=== PATIENT | female | born 1940 | race Caucasian/White ===

== ENCOUNTER → 2018-05-29 13:45 | Outpatient (CLI) | payer MEDICARE, MEDICAID, SELFPAY ==
[2018-05-29 14:51] LABS: Hematocrit 41.6 % (36-46); Hemoglobin 14.2 g/dL (12.0-16.0); Mean Corpuscular HGB Conc 34.1 % (30-36); Mean Corpuscular Hemoglobin 30.6 PG (26-34); Mean Corpuscular Volume 89.6 fL (80-100); Platelet Count 253 X10^3/uL (150-400); Red Blood Cell Count 4.65 X10^6/uL (4.0-5.2); Red Cell Distribution Width 13.1 % (11.6-14.8); White Blood Cell Count 6.7 X10^3/uL (4.5-11.0)
[2018-05-29 14:56] LABS: Cholesterol 175 mg/dL (140-199); Creatine Kinase 122 U/L (30-135); HDL Cholesterol 72 mg/dL (40-60); LDL Cholesterol Calculated 78 mg/dL (<100); Triglycerides 125 mg/dL (35-150)
[2018-05-29 15:17] LABS: HEMOLYSIS < 15 (0-50); Iron 53 ug/dL (37-170)
[2018-05-29 15:29] LABS: Percent Iron Saturation 19 % (15-50); Total Iron Binding Capacity 283 ug/dL (265-497); Transferrin 234 mg/dL (206-381)
[2018-05-29 15:34] LABS: Vitamin D 25 Hydroxy (D3) 35.8 ng/mL (30.0-100.0)
== END ==
PROVIDERS: PCP Student in an Organized Health Care Education/Training Program; Visit Provider Student in an Organized Health Care Education/Training Program
DX: M79.10 Myalgia, unspecified site (principal); E55.9 Vitamin D deficiency, unspecified; Z86.39 Personal history of other endocrine, nutritional and metabolic disease; E78.5 Hyperlipidemia, unspecified
CPT/HCPCS: 36415; 80061; 82306; 82550; 83540; 83550; 85027

== ENCOUNTER → 2018-06-26 09:19 | Outpatient (CLI) | payer MEDICARE, MEDICAID, SELFPAY ==
[2018-06-28 16:48] LABS: Fecal Immunochemical Test NOT DETECTED
== END ==
PROVIDERS: PCP Student in an Organized Health Care Education/Training Program; Visit Provider Student in an Organized Health Care Education/Training Program
DX: Z13.820 Encounter for screening for osteoporosis (principal); M85.832 Other specified disorders of bone density and structure, left forearm; Z78.0 Asymptomatic menopausal state; Z12.11 Encounter for screening for malignant neoplasm of colon
CPT/HCPCS: 77080; 77081; 82274

== ENCOUNTER 2018-06-26 10:29 | Outpatient (RCR) | payer MEDICARE, MEDICAID, SELFPAY ==
--- NOTE | 2018-06-27 18:16 | PT.OIE ---
Current Diagnoses Weakness (06/26/18) Past Medical History (Last Updated 05/28/18 @ 21:25 by Rivka Mac) Osteoarthritis (Chronic) Past Surgical History (Last Updated 05/28/18 @ 21:25 by Rivka Mac) History of surgery (Resolved ~2011) Provider Visit Care Team Role Provider Type Sampson Garcia MD Attending Provider Physician Primary Care Provider Specialty: Internal Medicine Address: [address] [place] [address], [facility] Email: Physical Therapy Initial Evaluation PT-OP-A Visit Information Start: 06/27/18 17:37 Freq: Status: Active Protocol: Document 06/26/18 10:45 [facility] (Rec: 06/27/18 18:16 AM[facility] [email or web address]) Out-Patient Physical Therapy Visit Information Visit Information Visit Type Initial Evaluation Visit Note 78 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 She is complaining of generalized weakness and specifically left sided shoulder weakness. She would like a evaluation for a home program she can do on her own. 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 She has complaints of left sided shoulder weakness since she was lifting hay gabino in April, some discomfort with reaching behind her back and overall weakness with walking and getting up from the couch. She notes she just does not feel as strong as she used to Treatment Goals Patient/Caregiver Goals Zeinab's goals include having a HEP that she can work on strengthening on her own. Prior Functional Status Baseline Function- ADL's Independent Baseline Function- Mobility Independent Baseline Function- Recreation/Hobbies able to garden from september- february and do all usual ADL's Current Functional Impairments (Reported) Functional Limitations- ADL's discomfort reaching behind her back, pain holding onto her hymn book while singing Functional Limitations- Mobility/Gait weakness with gait, difficulty standing up from a couch PT-OP-F Manual Assessment Start: 06/27/18 17:37 Freq: Status: Active Protocol: Document 06/26/18 10:45 [facility] (Rec: 06/27/18 18:16 AM[facility] [email or web address]) Manual Assessments Joint Mobility Assessment Joint Mobility Assessment limited left shoulder ROM with pain at end range flexion , abduction. PT-OP-K Range of Motion Start: 06/27/18 17:37 Freq: Status: Active Protocol: Document 06/26/18 10:45 AM[facility] (Rec: 06/27/18 18:16 AM[facility] [email or web address]) Shoulder Goniometric Range of Motion Shoulder Measured in Degrees Left Shoulder ROM WFL No Testing Position Standing Flexion 140 Abduction 155 External Rotation at 45 degrees 55 Abduction Internal Rotation 35 Internal Rotation Behind Back (text) to sacrum Shoulder ROM Limitations Shoulder ROM Limitations Soft Tissue Tightness Comments decreased flexibility of the pectoralis musculature PT-OP-M Strength Start: 06/27/18 17:37 Freq: Status: Active Protocol: Document 06/26/18 10:45 AM[facility] (Rec: 06/27/18 18:16 AM[facility] [email or web address]) Shoulder Strength Shoulder Manual Muscle Testing Left Flexion 3+ Fair+ Extension 3+ Fair+ Abduction (C5) 3+ Fair+ External Rotation 3+ Fair+ Internal Rotation 3+ Fair+ PT-OP-Q Treatments Start: 06/27/18 17:37 Freq: Status: Active Protocol: Document 06/26/18 10:45 AM[facility] (Rec: 06/27/18 18:16 AM[facility] [email or web address]) Therapeutic Exercises Supine Exercises 1 Supine Exercise Name AAROM shoulder flexion and ER Side bilateral Comments pt instructed in HEP Standing Exercises 3 Standing Exercise Name sit-stand from a chair Side bilateral Reps/Minutes 10 reps 3 times per day 2 Standing Exercise Name standing shoulder rows, shoulder extension, and ER Side bilateral Reps/Minutes work up to 3 x 10 reps 1 Standing Exercise Name standing chest stretch in the doorway Side bilateral Self-Care/Home Management Treatment Education Patient Education Home Exercise Program Other Education pt given a home exercise program for shoulder ROM and strengthening and a few LE strengthening exercises PT-OP-T Assessment and Plan Start: 06/27/18 17:37 Freq: Status: Active Protocol: Document 06/26/18 10:45 AM[facility] (Rec: 06/27/18 18:16 AMH [email or web address]) Physical Therapy Assessment Rehab Potential Rehabilitation Potential Excellent Evaluation Complexity Number of Personal Factors/Comorbidities 0 Number of Body Systems Impaired 1-2 Clinical Presentation at Evaluation Stable Impairments Impairments Activity Tolerance Functional Activities Pain Posture Strength Tone Goals One Impairment Zeinab lacks a HEP for shoulder limitations and general conditioning Short Term Goal (STG) Zeinab is educated in a HEP for her shoulder and gentle LE stengthening exercises STG Duration today Assessment Summary Assessment Zeinab presents to physical therapy today with symptoms of left sided shoulder weakness and discomfort since April. 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 Since that time her shoulder has felt weak and she has discomfort reaching her arm behind her. She also reports a generalized weakness in her body from where it has been previously. She feels weaker walking and notes some difficulty getting up from the couch. She reports she does not currently exercise. She wished to only be seen for the evaluation today and to be given home exercises. I focused on her left shoulder today and gentle LE strengthening. She has weakness in the left shoulder as compared to the right in flexion, abduction, ER. She is limited in her ROM on the left to 140 deg flexion and 155 deg abduction. She tolerated a gentle ROM program and strengthening exercises with theraband. I did also talk to her about starting a walking program and using a walking stick for balance at this time. I would be happy to work with Zeinab past this evaluation should she decide she would like further guidance or strengthening Physical Therapy Plan Frequency and Duration Plan of Care Start Date 06/26/18 Plan of Care End Date 06/26/18 Therapeutic Interventions Therapeutic Interventions Therapeutic Exercises Discharge Physical Therapy Discharge Comments Zeinab was seen for today's visit only and will work on her exercises independently per her request
--- NOTE | 2019-03-31 12:02 | PT.OPDS ---
Current Diagnoses Weakness (06/26/18) Visit Care Team Role Provider Type Sampson Garcia MD Attending Provider Physician Primary Care Provider Specialty: Internal Medicine Address: [address] [place] [address], [address], [address] Email: [email or web address] Visit Number Visit Number 1 Discharge Summary PT-OP-B Current Condition Start: 06/27/18 17:37 Freq: Status: Active Protocol: Document 06/26/18 10:45 AMH (Rec: 06/27/18 18:16 AMH [email or web address]) Current Condition History of Current Condition Onset Date April 2018 Current Complaints left sided shoulder wekaness and generalized weakness with walking History of Current Condition 78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 She has complaints of left sided shoulder weakness since she was lifting hay gab[place] in April, some discomfort with reaching behind her back and overall weakness with walking and getting up from the couch. She notes she just does not feel as strong as she used to Treatment Goals Patient/Caregiver Goals Zeinab's goals include having a HEP that she can work on strengthening on her own. Prior Functional Status Baseline Function- ADL's Independent Baseline Function- Mobility Independent Baseline Function- Recreation/Hobbies able to garden from september- february and do all usual ADL's Current Functional Impairments (Reported) Functional Limitations- ADL's discomfort reaching behind her back, pain holding onto her hymn book while singing Functional Limitations- Mobility/Gait weakness with gait, difficulty standing up from a couch PT-OP-F Manual Assessment Start: 06/27/18 17:37 Freq: Status: Active Protocol: Document 06/26/18 10:45 AMH (Rec: 06/27/18 18:16 AMH [email or web address]) Manual Assessments Joint Mobility Assessment Joint Mobility Assessment limited left shoulder ROM with pain at end range flexion , abduction. PT-OP-K Range of Motion Start: 06/27/18 17:37 Freq: Status: Active Protocol: Document 06/26/18 10:45 AMH (Rec: 06/27/18 18:16 AMH [email or web address]) Shoulder Goniometric Range of Motion Shoulder Left Shoulder ROM WFL No Testing Position Standing Flexion 140 Abduction 155 External Rotation at 45 degrees 55 Abduction Internal Rotation 35 Internal Rotation Behind Back (text) to sacrum Shoulder ROM Limitations Shoulder ROM Limitations Soft Tissue Tightness Comments decreased flexibility of the pectoralis musculature PT-OP-M Strength Start: 06/27/18 17:37 Freq: Status: Active Protocol: Document 06/26/18 10:45 AMH (Rec: 06/27/18 18:16 AMH [email or web address]) Shoulder Strength Shoulder Manual Muscle Testing Left Flexion 3+ Fair+ Extension 3+ Fair+ Abduction (C5) 3+ Fair+ External Rotation 3+ Fair+ Internal Rotation 3+ Fair+ PT-OP-T Assessment and Plan Start: 06/27/18 17:37 Freq: Status: Active Protocol: Document 03/31/19 12:02 AMH (Rec: 03/31/19 12:02 AMH [email or web address]) Physical Therapy Plan Discharge Physical Therapy Discharge Reasons No Longer Attending PT Discharge Comments The patient did not schedule any further visits past her initial evaluation. She will be discharged at this time
== END 2018-06-26 11:29 ==
LOC: PHYS 10:29
PROVIDERS: PCP Student in an Organized Health Care Education/Training Program; Visit Provider Student in an Organized Health Care Education/Training Program
DX: R53.1 Weakness (principal)
CPT/HCPCS: 97110; 97161

== ENCOUNTER → 2019-10-15 10:05 | Outpatient (CLI) | payer MEDICARE, MEDICAID, SELFPAY ==
[2019-10-15 10:45] LABS: Add Manual Diff / Slide Review NO; Basophils Absolute Auto 100 /uL (0-100); Basophils Percent Auto 0.7 % (0-2); Eosinophils Absolute Auto 100 /uL (0-450); Eosinophils Percent Auto 0.7 % (2-4); Hematocrit 38.2 % (36-46); Hemoglobin 13.2 g/dL (12.0-16.0); Lymphocytes Absolute Auto 800 /uL (1100-4500); Mean Corpuscular HGB Conc 34.5 % (30-36); Mean Corpuscular Hemoglobin 29.7 PG (26-34); Mean Corpuscular Volume 86.2 fL (80-100); Monocytes Absolute Auto 600 /uL (0-900); Monocytes Percent Auto 7.5 % (3-14); Neutrophils Absolute Auto 6300 /uL (1500-7000); Neutrophils Percent Auto 81.1 % (50-75); Platelet Count 279 X10^3/uL (150-400); Red Blood Cell Count 4.43 X10^6/uL (4.0-5.2); Red Cell Distribution Width 12.3 % (11.6-14.8); White Blood Cell Count 7.8 X10^3/uL (4.5-11.0)
[2019-10-15 11:00] LABS: BUN Creatinine Ratio 30.6 (6-22); Blood Urea Nitrogen 15 mg/dL (7-17); Calcium 9.3 mg/dL (8.4-10.2); Carbon Dioxide 25 mmol/L (22-32); Chloride 95 mmol/L (98-107); Estimated Glomerular Filt Rate > 60.0 mL/min (>60); Glucose 98 mg/dL (80-110); HEMOLYSIS < 15 (0-50); Potassium 4.2 mmol/L (3.4-5.1); Sodium 129 mmol/L (137-145)
[2019-10-17 11:54] LABS: Thyroid Stimulating Hormone 0.56 uIU/mL (0.47-4.68)
== END ==
PROVIDERS: PCP Student in an Organized Health Care Education/Training Program; Referring Provider Student in an Organized Health Care Education/Training Program; Visit Provider Student in an Organized Health Care Education/Training Program
DX: I10 Essential (primary) hypertension (principal); K29.70 Gastritis, unspecified, without bleeding; E87.1 Hypo-osmolality and hyponatremia
CPT/HCPCS: 36415; 80048; 84443; 85025

== ENCOUNTER → 2021-07-04 09:00 | Outpatient (CLI) | payer MEDICARE, MEDICAID, SELFPAY ==
[2021-07-04 11:33] LABS: BUN Creatinine Ratio 26.4 (6-22); Blood Urea Nitrogen 14 mg/dL (7-17); Calcium 9.5 mg/dL (8.4-10.2); Carbon Dioxide 28 mmol/L (22-32); Chloride 98 mmol/L (98-107); Estimated Glomerular Filt Rate > 60.0 mL/min (>60); Glucose 93 mg/dL (80-110); HEMOLYSIS < 15 (0-50); Potassium 4.3 mmol/L (3.4-5.1); Sodium 131 mmol/L (137-145)
== END ==
PROVIDERS: PCP Student in an Organized Health Care Education/Training Program; Referring Provider Student in an Organized Health Care Education/Training Program; Visit Provider Student in an Organized Health Care Education/Training Program
DX: I10 Essential (primary) hypertension (principal)
CPT/HCPCS: 36415; 80048

== ENCOUNTER → 2023-02-07 11:20 | Outpatient (CLI) | payer MEDICARE, MEDICAID, SELFPAY ==
[2023-02-07 12:37] LABS: Add Manual Diff / Slide Review NO; Basophils Absolute Auto 0 /uL (0-100); Basophils Percent Auto 0.6 % (0-2); Eosinophils Absolute Auto 0 /uL (0-450); Eosinophils Percent Auto 0.5 % (2-4); Hematocrit 36.6 % (36-46); Hemoglobin 12.8 g/dL (12.0-16.0); Lymphocytes Absolute Auto 800 /uL (1100-4500); Lymphocytes Percent Auto 11.4 % (25-40); Mean Corpuscular HGB Conc 35.1 % (30-36); Mean Corpuscular Hemoglobin 30.7 PG (26-34); Mean Corpuscular Volume 87.5 fL (80-100); Monocytes Absolute Auto 400 /uL (0-900); Neutrophils Absolute Auto 5500 /uL (1500-7000); Neutrophils Percent Auto 81.5 % (50-75); Platelet Count 248 X10^3/uL (150-400); Red Blood Cell Count 4.18 X10^6/uL (4.0-5.2); Red Cell Distribution Width 12.6 % (11.6-14.8); White Blood Cell Count 6.7 X10^3/uL (4.5-11.0)
[2023-02-07 12:45] LABS: Hemoglobin A1C% w Est Avg Glu 5.7 % (4.0-6.0)
[2023-02-07 13:04] LABS: Alanine Aminotransferase 29 IU/L (<35); Albumin 4.2 g/dL (3.5-5.0); Albumin Globulin Ratio 1.8 (1.0-2.8); Alkaline Phosphatase 96 U/L (38-126); Aspartate Aminotransferase 27 IU/L (14-36); BUN Creatinine Ratio 19.6 (6-22); Bilirubin Total 0.5 mg/dL (0.2-1.3); Blood Urea Nitrogen 10 mg/dL (7-17); Calcium 9.5 mg/dL (8.4-10.2); Carbon Dioxide 27 mmol/L (22-32); Chloride 98 mmol/L (98-107); Cholesterol 161 mg/dL (140-199); Estimated Glomerular Filt Rate > 60 mL/min (>60); Globulin 2.4 g/dL (1.7-4.1); Glucose 103 mg/dL (80-110); HDL Cholesterol 76 mg/dL (40-60); HEMOLYSIS < 15 (0-50); LDL Cholesterol Calculated 74 mg/dL (<100); Sodium 131 mmol/L (137-145); Total Protein 6.6 g/dL (6.3-8.2); Triglycerides 57 mg/dL (35-150)
== END ==
PROVIDERS: PCP Family Medicine; Referring Provider Family Medicine; Visit Provider Family Medicine
DX: G31.84 Mild cognitive impairment of uncertain or unknown etiology (principal); I10 Essential (primary) hypertension; E78.5 Hyperlipidemia, unspecified
CPT/HCPCS: 36415; 80053; 80061; 83036; 85025

== ENCOUNTER → 2023-05-22 11:20 | Outpatient (CLI) | payer MEDICARE, MEDICAID, SELFPAY ==
[2023-05-22 12:29] LABS: Vitamin D 25 Hydroxy (D3) 29.9 ng/mL (30.0-100.0)
[2023-05-22 15:16] LABS: Sodium Urine Random 76 mmol/L (30-90)
[2023-05-23 15:27] LABS: Osmolality Urine 336 mOsmol/kg (.)
== END ==
PROVIDERS: PCP Family Medicine; Referring Provider Family Medicine; Visit Provider Family Medicine
DX: Z00.00 Encounter for general adult medical examination without abnormal findings (principal); I10 Essential (primary) hypertension; E78.5 Hyperlipidemia, unspecified; E87.1 Hypo-osmolality and hyponatremia
CPT/HCPCS: 36415; 82306; 83935; 84300

== ENCOUNTER → 2023-08-31 11:09 | Outpatient (CLI) | payer MEDICARE, MEDICAID, SELFPAY ==
[2023-08-31 19:56] LABS: BUN Creatinine Ratio 29.1 (6-22); Blood Urea Nitrogen 16 mg/dL (7-17); Calcium 9.5 mg/dL (8.4-10.2); Carbon Dioxide 27 mmol/L (22-32); Chloride 102 mmol/L (98-107); Estimated Glomerular Filt Rate > 60 mL/min (>60); Glucose 96 mg/dL (80-110); HEMOLYSIS < 15 (0-50); Potassium 4.2 mmol/L (3.4-5.1); Sodium 136 mmol/L (137-145)
== END ==
PROVIDERS: PCP Family Medicine; Visit Provider Family Medicine
DX: Z13.6 Encounter for screening for cardiovascular disorders (principal); I10 Essential (primary) hypertension; E78.5 Hyperlipidemia, unspecified
CPT/HCPCS: 80048

== ENCOUNTER → 2025-01-27 10:58 | Outpatient (CLI) | payer MEDICARE, MEDICAID, SELFPAY ==
[2025-01-27 11:27] LABS: Hematocrit 39.7 % (36-46); Hemoglobin 13.5 g/dL (12.0-16.0); Mean Corpuscular HGB Conc 34.0 % (30-36); Mean Corpuscular Hemoglobin 30.3 PG (26-34); Mean Corpuscular Volume 89.0 fL (80-100); Platelet Count 225 X10^3/uL (150-400)
[2025-01-27 11:44] LABS: Alanine Aminotransferase 24 IU/L (<35); Albumin 4.3 g/dL (3.5-5.0); Albumin Globulin Ratio 2.0 (1.0-2.8); Alkaline Phosphatase 92 U/L (38-126); Blood Urea Nitrogen 12 mg/dL (7-17); Calcium 9.3 mg/dL (8.4-10.2); Carbon Dioxide 25 mmol/L (22-32); Chloride 98 mmol/L (98-107); Cholesterol 163 mg/dL (140-199); Estimated Glomerular Filt Rate > 60 mL/min (>60); Globulin 2.2 g/dL (1.7-4.1); Glucose 95 mg/dL (70-99); HDL Cholesterol 92 mg/dL (40-60); HEMOLYSIS < 15 (0-50); Potassium 4.3 mmol/L (3.4-5.1); Sodium 131 mmol/L (137-145); Total Protein 6.5 g/dL (6.3-8.2); Triglycerides 50 mg/dL (35-150)
[2025-01-27 11:53] LABS: Hemoglobin A1C% w Est Avg Glu 6.0 % (4.0-6.0)
[2025-01-27 12:30] LABS: Microalbumi Creatinin Ratio Ur 15.0 ug/mg CR (<30)
== END ==
PROVIDERS: PCP Family Medicine; Referring Provider Family Medicine; Visit Provider Family Medicine
DX: I10 Essential (primary) hypertension (principal); Z13.1 Encounter for screening for diabetes mellitus; E78.5 Hyperlipidemia, unspecified
CPT/HCPCS: 36415; 80053; 80061; 82043; 82570; 83036; 85027